=== PATIENT | female | born 1995 | race Caucasian/White ===

== ENCOUNTER 2023-06-25 15:33 | Outpatient (CLI) | payer OTHER ==
--- NOTE | 2023-06-25 19:39 | Ultrasound Report ---
PROCEDURE: Pelvic w/Transvaginal INDICATIONS: PELVIC PAIN TECHNIQUE: Real-time scanning was performed of the pelvic organs, with image documentation. Additional endovagi nal scanning was necessary due to incomplete visualization of the adnexal and endometrial structures by transabdominal scanning. COMPARISON: None. FINDINGS: Uterus: Uterus is anteverted and normal in size at 6.9 x 3.8 x 4.8 cm. The myometrium is heterogene ous. The endometrium measures 0.5 mm in combined thickness. IUD is appropriately positioned. Ovaries: The right ovary measures 5.7 x 2.7 x 3.5 cm, with a calculated ovarian volume of 27.9 cc. Mixed echogenicity right adnexal lesion measuring 3.2 x 1.9 x 2.6 cm and anechoic lesion measuring 2. 5 x 1.7 x 2.5 cm. The left ovary measures 3.1 x 1.7 x 1.5 cm cm, with a calculated ovarian volume of cc. The ovaries have a normal sonographic appearance. Less than 12 follicles can be seen in each ov mallorie. No adnexal masses are seen. No cystic lesions measuring greater than 3 cm. Other: Trace pelvic free fluid. IMPRESSION: 1.Mixed echogenicity right ovarian lesion measuring 3.2 x 1.9 x 2.6 cm. Differential includes a hemor rhagic cyst versus endometrioma. Recommend a follow-up ultrasound in 6-12 weeks. 2.Right ovarian simple cyst measuring 3.2 x 1.9 x 2.6 cm. Attention on follow-up. 3.IUD is appropriately positioned. 4.Trace pelvic free fluid. Reviewed by: Deisy Garcia MD on 06/25/2023 7:37 PM PST Approved by: Deisy Garcia MD on 06/25/2023 7:37 PM PST Station ID: [id number]
== END 2023-06-25 15:34 | disposition home or self-care (01) ==
LOC: DI 15:33
PROVIDERS: ATTEND Nurse Practitioner
DX: N83.9 Noninflammatory disorder of ovary, fallopian tube and broad ligament, unspecified (principal); N83.291 Other ovarian cyst, right side; Z97.5 Presence of (intrauterine) contraceptive device

== ENCOUNTER 2023-07-09 07:43 | Outpatient (CLI) | payer OTHER ==
[~2023-07-09 07:43] MED LIST: GADOTERATE MEGLUMINE 2.5 MMOL/5 ML VIAL ONE; GADOTERATE MEGLUMINE 5 MMOL/10 ML VIAL ONE
[2023-07-09] MEDS: GADOTERATE MEGLUMINE 5 MMOL/10 ML VIAL IVP ONE (08:59)
--- NOTE | 2023-07-11 09:07 | MRI Report ---
PROCEDURE: Pelvis W/WO INDICATIONS: FEMALE PELVIC PAIN CONTRAST: CLARISCAN 13.6 ML TECHNIQUE: Coronal ultra fast SE, sagittal breath-hold T2 FSE; axial T1 FSE with and without fat saturation thro ugh the pelvis. Optional long- and short-axis uterine nonbreath-hold T2 FSE through the uterus. Sag ittal or axial dynamic ultra fast GE during administration of contrast. Post-contrast axial or coron al ultra fast GE / 2-D spoiled GE with fat saturation from the iliac crests to the symphysis. Option al diffusion weighted imaging and ADC may be performed. COMPARISON: Ultrasound 06/25/2019 T4 FINDINGS: Image quality: Excellent. Uterus: Uterus is normal in size. Endometrium is normal in thickness. Junctional zone is normal in thickness at 12 mm or less. IUD within the central endometrial cavity. Adnexa: Both ovaries are normal in size, without suspicious cystic or solid lesions. Resolved right -sided hemorrhagic cyst. Numerous peripheral follicles of various sizes within the ovaries. Urinary system: Bladder wall is normal in thickness. Distal ureters are non distended. Urethra raeann ears normal in morphology. Nodes and vessels: No pelvic or inguinal adenopathy by size criteria. Iliac vessels are normal in s ize. Bowel and peritoneum: No pathologic free pelvic fluid. Inferior colon and small bowel loops are nor mal in caliber. Soft tissues: No inguinal hernias. No findings of pelvic floor incompetence in the absence of provo cation. Bones: Marrow demonstrates normal overall signal. IMPRESSION: Resolved right-sided hemorrhagic cyst. Greater than 12 follicles per ovary, which can be seen in the clinical setting of polycystic ovarian syndrome. IUD within the central uterus. Reviewed by: Eitan Cazares MD on 07/11/2023 9:05 AM PST Approved by: Eitan Cazares MD on 07/11/2023 9:05 AM PST Station ID: [id number]
== END 2023-07-09 07:44 | disposition home or self-care (01) ==
LOC: DI 07:43
PROVIDERS: ATTEND Nurse Practitioner
DX: R10.2 Pelvic and perineal pain (principal); Z97.5 Presence of (intrauterine) contraceptive device
CPT/HCPCS: 72197; A9575

== ENCOUNTER 2023-07-19 14:45 | Outpatient (CLI) | payer OTHER ==
--- NOTE | 2023-07-19 21:57 | XRAY Report ---
PROCEDURE: Knee 4 View BILAT INDICATIONS: BILAT KNEE PAIN TECHNIQUE: 3 views of the knee was obtained. COMPARISON: None FINDINGS: Bones: No fractures or dislocations. No suspicious bony lesions. Soft tissues: No knee joint effusion. No suspicious soft tissue calcifications or masses. IMPRESSION: Unremarkable knee radiographs Reviewed by: Sukh Gu MD on 07/19/2023 8:56 PM [place] Approved by: Sukh Gu MD on 07/19/2023 8:56 PM [place] Station ID: [id number]
== END 2023-07-19 23:59 | disposition home or self-care (01) ==
LOC: DI.WOS 14:45
PROVIDERS: ATTEND Physician Assistant Surgical
DX: M25.569 Pain in unspecified knee (principal)

== ENCOUNTER 2023-09-29 08:00 | Outpatient (CLI) | payer OTHER ==
[2023-09-29 20:33] LABS: CHLAMYDIA TRACHOMATIS DNA NEGATIVE (NEGATIVE); NEISSERIA GONORRHOEAE DNA NEGATIVE (NEGATIVE)
[2023-09-29 21:57] LABS: BACTERIAL VAGINOSIS DNA NEGATIVE (NEGATIVE); CANDIDA GLABRATA DNA NEGATIVE (NEGATIVE); CANDIDA GROUP DNA NEGATIVE (NEGATIVE); CANDIDA KRUSEI DNA NEGATIVE (NEGATIVE); TRICHOMONAS VAGINALIS DNA NEGATIVE (NEGATIVE)
== END 2023-09-29 23:59 | disposition home or self-care (01) ==
LOC: LAB.WC 08:00
PROVIDERS: ATTEND Nurse Practitioner
DX: R10.2 Pelvic and perineal pain (principal)
CPT/HCPCS: 81514; 81599; 87491; 87591; 87661